=== PATIENT | male | born 2000 | race Two or more races ===

== ENCOUNTER 2024-04-24 22:57 | Emergency (ER) | payer MEDICAID, OTHER ==
[~2024-04-24] VITALS: Ht 182.9 cm; Wt 90.8 kg
[2024-04-25 00:10] VITALS: BP 122/84
[2024-04-25 00:12] VITALS: PULSE 88; RESP 18; O2SAT 98
[2024-04-25] MEDS: IBUPROFEN 800 MG TAB PO ONE (00:54)
[2024-04-25] MEDS: HYDROcodone-ACET 5/325MG TAB PO ONE (00:55)
[2024-04-25 01:06] VITALS: TEMP 97.5
[2024-04-25] MEDS: IBUPROFEN 600 MG TAB PO ONE (01:06)
[2024-04-25] MEDS ORDERED: IBUP-1455 PO (01:10)
== END 2024-04-25 02:04 | disposition home or self-care (01) ==
LOC: EDBD 22:57 → ER 22:57
DX: S63.591A Other specified sprain of right wrist, initial encounter (principal); X58.XXXA Exposure to other specified factors, initial encounter; Y93.89 Activity, other specified; Y92.89 Other specified places as the place of occurrence of the external cause; Y99.8 Other external cause status
CPT/HCPCS: 29125; 73110